=== PATIENT | female | born 1985 | race Caucasian/White ===

== ENCOUNTER → 2022-03-25 16:47 | Outpatient (CLI) | payer OTHER, SELFPAY | PROVIDERS: Family Provider Family Medicine; Referring Provider Internal Medicine; Visit Provider Internal Medicine | DX: Z23 Encounter for immunization (principal) | CPT/HCPCS: 90471; 90686 ==

== ENCOUNTER → 2023-02-01 10:15 | Outpatient (CLI) | payer OTHER, SELFPAY | PROVIDERS: Family Provider Family Medicine; Visit Provider Student in an Organized Health Care Education/Training Program | DX: R30.0 Dysuria (principal) | CPT/HCPCS: 87086 ==

== ENCOUNTER → 2023-03-30 | Outpatient (CLI) | payer OTHER, SELFPAY | PROVIDERS: Family Provider Family Medicine; Referring Provider Family Medicine; Visit Provider Family Medicine | DX: Z23 Encounter for immunization (principal) | CPT/HCPCS: 90471; 90686 ==

== ENCOUNTER → 2024-03-25 11:46 | Outpatient (CLI) | payer OTHER, SELFPAY | PROVIDERS: Family Provider Family Medicine; Visit Provider Nurse Practitioner Family | DX: R30.0 Dysuria (principal) | CPT/HCPCS: 87077; 87086; 87186 ==

== ENCOUNTER → 2024-06-21 13:27 | Outpatient (CLI) | payer OTHER, SELFPAY ==
[2024-06-21 14:18] LABS: Influenza A - CEPHEID Flu A NEGATIVE (NEGATIVE); Influenza B - CEPHEID Flu B NEGATIVE (NEGATIVE); Respiratory Syncytial Virus Negative (Negative)
[2024-06-21 14:19] LABS: COVID-19 CEPHEID 4-PLEX PCR Negative (Negative)
== END ==
PROVIDERS: Family Provider Family Medicine; Visit Provider Physician Assistant Medical
DX: R05.1 Acute cough (principal)
CPT/HCPCS: 0241U

== ENCOUNTER → 2024-06-21 13:41 | Outpatient (CLI) | payer OTHER, SELFPAY ==
--- NOTE | 2024-06-21 13:42 | DI.RAD.S_ITS ---
PROCEDURE: XR CHEST 2V INDICATIONS: Cough TECHNIQUE: 2 views of the chest were acquired. COMPARISON: None. FINDINGS: Surgical changes and devices: None. Lungs and pleura: Lungs are clear. No pleural effusions or pneumothorax. Mediastinum: Mediastinal contours are normal. Heart size is normal. Bones and chest wall: No suspicious bony abnormalities. Soft tissues appear unremarkable. IMPRESSION: No acute cardiopulmonary abnormality is seen. Dictated by: Kenneth Menon M.D. on 06/21/2024 at 14:05 Approved by: Kenneth Menon M.D. on 06/21/2024 at 14:06
== END ==
PROVIDERS: Family Provider Family Medicine; Referring Provider Physician Assistant Medical; Visit Provider Physician Assistant Medical
DX: R05.1 Acute cough (principal)
CPT/HCPCS: 0241U; 71046

== ENCOUNTER → 2024-07-11 07:02 | Outpatient (CLI) | payer OTHER, SELFPAY ==
--- NOTE | 2024-07-11 07:03 | DI.US.S_ITS ---
PROCEDURE: US PELVIC COMPLETE INDICATIONS: BLEEDING X APPROX 44 DAYS. H/O BREAST CANCER 2016. COPPER IUD SINCE 2019. TECHNIQUE: Real-time scanning was performed of the pelvic organs, with image documentation. Additional endovaginal scanning was necessary due to incomplete visualization of the adnexal and endometrial structures by transabdominal scanning. COMPARISON: None. FINDINGS: Uterus: Uterus is anteverted and normal in size at 9.0 x 5.5 x 5.0 cm. The myometrium is homogeneous. The endometrium measures 12 mm combined thickness. Intrauterine device is seen within the inferior portion of the lower uterine segment adjacent to the internal os. Ovaries: The right ovary is not well visualized. The left ovary measures 2.8 x 2.1 x 1.8 cm, with a calculated ovarian volume of 5.5 cc. Bilateral ovaries are not well visualized, however no gross abnormalities are visualized. Other: No pathologic free abdominal or pelvic fluid. IMPRESSION: Endometrial thickness within normal limits for premenopausal patient. Intrauterine device is seen within the lower uterine segment near the internal os. Bilateral ovaries are not well visualized, however no gross abnormalities are visualized. Approved by: Clari Nguyen M.D.,Ph.D. on 07/11/2024 at 11:04
== END ==
PROVIDERS: Family Provider Family Medicine; Referring Provider Specialist; Visit Provider Specialist
DX: N92.6 Irregular menstruation, unspecified (principal); Z97.5 Presence of (intrauterine) contraceptive device
CPT/HCPCS: 76830; 76856